=== PATIENT | female | born 1995 | race African-American/Black ===

== ENCOUNTER 2024-07-01 13:26 | Emergency (ER) | payer BC, SELFPAY ==
--- NOTE | ~2024-07-01 | XR_ITS ---
XR ankle RT min 3V Ordering provider: Zonia Smith PA-C History: . LATERAL PAIN AFTER rolled ankle . Comparison: None. FINDINGS: BONES: No acute fracture or dislocation. JOINT SPACES: Normal. SOFT TISSUES: Soft tissue swelling over the lateral malleolus. IMPRESSION: No acute osseous abnormality of the right ankle. Reviewed, dictated and finalized at location A.
--- OUTSIDE RECORDS SUMMARY | 2024-07-01 13:28 | XMS_ITS | Clinical Summary ---
Author Organization [facility] Address [address] [place] [address] Care Team Providers Care Aerodynamics Professor Name Role Phone Zuri Woodruff DIRECTOR ENTERPRISE DATA ARCHITECTURE-EXTRUSION OPERATOR Unavailable [phone] Source Comments [facility],non-owned Affiliates and Associated Physician Practices is amultiple site organization consisting of ambulatory clinics and hospital sitesin [place], [place], [place] and [place]. This disclosure is being madepursuant to the Care Everywhere program and may not contain all information available regarding this patient. Last updated 17.[employer] Allergies No known active allergies Medications * Be aware that medications may not be up to date on this document. Alwaysverify current medications with the patient. Vit-Fe Fumarate-FA ( VITAMIN) 28-0.8 MG tabletIndicatio ns: Take 1 tablet by mouth once daily Reasons: Active Active Problems Problem Noted Date Diagnosed Date Encounter for screening for cervical l ength 06/12/2018 H/O herpes simplex type 2 infection 06/06/2018 Overview (06/06/2018): HSV 2 IgG positive Choroid plexus cyst of fetus 06/06/2018 Rh negative, antepartum 06/04/2018 Maternal syphilis, antepartum 05/29/2018 Overview (06/06/2018): [03/21/18] T. Pallidum [immunoblot] indeterminate--low levels of antibodies detected antibodies RPR [05/25/18] T. 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 Supervision of high-risk of young prim igravida 05/29/2018 Overview (06/06/2018): [03/21/18]: T. Pallidum [immunoblot] indeterminate--low levels of antibodies detected antibodies ; RPR nonreactive Intentional acetaminophen overdose 09/26/2014 Assessment & Plan (09/26/2014 1:16 PM CDT): Assessment: 19 y.o with no psychiatric/behavioral disorder admitted for intentional overdose of medications containing acetaminophen. 4 hour level below treatment threshold. LFTs normal. Currently asymptomatic. Repeat acetaminophen levels remain below toxic level. Plan: I/O monitoring Vitals q 4 hours saline lock PIV urine hCG regular diet Suicide precaution Social service consult Central intake consult Resolved Problems Problem Noted Date Diagnosed Date Resolved Date Right knee pain 07/03/2014 05/29/2018 Immunizations Immunization Administration Dates Next Due Rhogam 08/08/2018 TDAP (7yrs+) 08/21/2018 Family History Medical History Relation Name Comments Asthma Brother Sickle Cell Anemia Father Diabetes Maternal Grandmother Sickle Cell Anemia Sister Sickle Cell Anemia half-sister Relation Name Status Comments Brother Father Maternal Grandmother Sister half-sister Social History Tobacco Use Types Packs/Day Years Used Date Smoking Tobacco: Passive Smo ke Exposure - Never Smoker Smokeless Tobacco: Never Alcohol Use Standard Drinks/Week Comments No 0 (1 standard drink = 0.6 oz pur e alcohol) Comments No Sex and Gender Information Value Date Recorded Sex Assigned at Not on file Legal Sex Female 4:14 PM CDT Gender Identity Not on file Sexual Orientation Not on file Last Filed Vital Signs Vital Sign Reading Time Taken Comments Blood Pressure 111/79 04/26/2023 5:01 AM CDT Pulse 95 04/26/2023 5:01 AM CDT Temperature 37.1 C (98.7 F) 04/26/2023 2:00 AM CDT Respiratory Rate 18 04/26/2023 5:01 AM CDT Oxygen Saturation 98% 04/26/2023 5:01 AM CDT Inhaled Oxygen Concentration - - Weight 84.8 kg (187 lb) 04/26/2023 1:39 AM CDT Height 167.6 cm (5' 6) 04/26/2023 1:39 AM CDT Body Mass Index 30.18 04/26/2023 1:39 AM CDT Plan of Treatment Health Maintenance Due Date Last Done Comments HIV SCREENING 01/19/2012 HEPATITIS C SCREENING 01/14/2015 HEPATITIS B VACCINE (1 of 3 - 19+ 3-dose series) 01/19/2016 PAP SMEAR 03/23/2021 03/23/2018 (Done Outside Per Report) COVID-19 VACCINE (2 - 2023-2 5 season) 2023 02/24/2021 DEPRESSION SCREENING 02/07/2024 INFLUENZA VACCINE (Season Ended) 2024 12/11/2013, 03/09/2011 DTAP/TDAP/TD VACCINES (2 - T d or Tdap) 08/21/2028 08/21/2018 ZOSTER VACCINE (1 of 2) 2047 HIB VACCINE Aged Out No longer eligi ble based on patient's age to complete this topic HPV VACCINE Aged Out No longer eligi ble based on patient's age to complete this topic MENINGOCOCCAL (Group B) VACCINE SHARED DECISION-MAKING Aged Out No longer eligible based on patient's age to complete this topic MENINGOCOCCAL GROUPS A/C/Y/W VACCINE Aged Out No longer eligible based on patient's age to complete this topic PNEUMOCOCCAL VACCINE Aged Out No long er eligible based on patient's age to complete this topic Insurance [facility] MEDICAID [facility] Advance Directives * Full Code (Latest Code Status on File) Date Activated Date Inactivated Comments 09/25/2014 11:46 PM 09/26/2014 7:21 PM * Full Code Date Activated Date Inactivated Comments 09/25/2014 11:38 PM 09/25/2014 11:46 PM Care Teams Aerodynamics Professor Relationship Specialty Start Date End Date Zuri Woodruff, DIRECTOR ENTERPRISE DATA ARCHITECTURE-EXTRUSION OPERATOR [address] [place], [place] [id number] Nurse Practitioner 10/15/14
--- OUTSIDE RECORDS SUMMARY | 2024-07-01 13:28 | XMS_ITS | CONTINUITY OF CARE DOCUMENT ---
Author Name angelina angelina Address Unknown Organization [facility] Address [address] [place] [address] Phone [phone] Care Team Providers Care Rn Coronary Care Unit Name Role Phone Bandar Gimenez MD Unavailable [phone] JHON DAWKINS MD Unavailable [phone] PROBLEMS Condition Status Date Provider Notes Cardiology examination active Bandar Gimenez MD Chest pain active Bandar Gimenez MD ENCOUNTERS Date Type Provider Location Encounter Diag nosis - In-person encounter Office Visit Bandar Gimenez MD [facility] Cardiology examinationChest pain VITAL SIGNS Date Observation Value Provider Body Mass Index (Ratio) 32.92 kg/m2 Ludwig Gimenez MD blood pressure, diastolic 87 mm[Hg] [place] nkLogirina blood pressure, systolic 17 mm[Hg] Silvia kLogirina oxygen saturation, oximetry 94 % Karey Shelton pulse rate 97 /min Karey freire blood pressure, cuff size regular Ti vincent Shelton blood pressure, diastolic 87 mm[Hg] Ti vincent Shelton blood pressure, systolic 117 mm[Hg] Bubba Shelton weight E&M 204 [lb_av] Karey freire height E&M 66 [in_i] Karey Saunder s HISTORY OF MEDICATION USE Medication Status Instructions Dates Provider Indications Com ments naproxen 500 mg tablet active Ti vincent Shelton cyclobenzaprine 10 mg tablet active Karey Shelton sertraline 25 mg tablet active T iftruong Shelton ondansetron HCl 4 mg tablet active Karey Shelton Mirena 21 mcg/24hr (up to 8 yrs) 52 mg intrauterine device active Karey Shelton INSURANCE PROVIDERS Payer name Policy type / Coverage type [place] red democrat ID [facility] [id number] [facility] [id number] ADVANCE DIRECTIVES Name Date DISCUSSED - NO DECISION MADE TREATMENT PLAN Date Name Performer Cardiology Bandar Gimenez MD Date Name OLGA RHEUMATOID FACTOR SED RATE BY MODIFIED ANKUSH LIPID PANEL Complete Echo HISTORY OF PROCEDURES Procedure Date Procedure Name Provider Procedure Notes S tatus EKG Bandar Gimenez MD completed
--- OUTSIDE RECORDS SUMMARY | 2024-07-01 13:28 | XMS_ITS | Referral Summary ---
Author Organization [facility] Address [address] [place] [address] Care Team Providers Care Dry Chain Operator Name Role Phone [facility] Primary Care Provider [phone] Allergies No known active allergies Medications aspirin 325 mg tablet Take 2 tablets (650 mg total) by mouth every 6 (six) hours for 7 days 56 tablet 06/04/2021 Active omeprazole (PriLOSEC) 20 mg capsule Take 1 capsule (20 mg total) by mouth daily for 7 days 7 capsule 06/04/2021 Active naproxen (NAPROSYN) 500 mg tablet Take 1 tablet (500 mg total) by mouth 2 (two) times a day with meals 30 tablet 12/28/2021 Active Active Problems Problem Noted Date Diagnosed Date Trichomoniasis of vagina 09/23/2018 Overview (09/23/2018): [facility] visit 09/23/18: --thin, frothy dc on spec exam, wet prep w/ motile trich. Rx for flagyl 500 mg po q 12 hrs x 7 days given. Rec partner tx & no intercourse x 2 wks. --GC/CT sent, UA neg --Reactive NST --Irreg ctx on toco, SVE /-3. Rec recheck in 1 hr, pt declined to stay. Strict PTL prec rev'd. --Declined APAP/heat --Advised to keep f/u on 09/25 uterine contractions 09/12/2018 Overview (09/12/2018): [facility] 8/7/19 R/O PTL: -No e/o PTL, UTI. SVE 04/30/-3 posterior x3 unchanged from prev exams -No e/o dehydration, hydrated with IVF 1l. Urine dip negative -irregular contractions, patient comfortable -Abdomen benign, likely round ligament/musculoskeletal discomforts of also. -Discussed normal physiologic discomforts of . Encouraged tylenol, heat, PG support belt. PTL precautions reviewed FWB: Reactive NST Herpes simplex virus type 2 (HSV-2) infection affecting in third trimester 09/12/2018 Marijuana abuse 09/12/2018 Biological false positive RPR test 09/12/2018 GBS (group B Streptococcus c arrier), +RV culture, currently 09/12/2018 Rh negative state in antepartum period 9 Abdominal pain affecting 06/11/2018 Overview (06/11/2018): [facility] VISIT 06/11/2018: abdominal pain - SSE: negative, closed/long/hi - abdominal soft, nontender - VSS - urine dip negative - likely muscular pains in , tylenol, heat and support belt dicussed - + Dopp tones - DW Dr. Amilcar PETERS Social History Tobacco Use Types Packs/Day Years Used Date Smoking Tobacco: Former Smokeless Tobacco: Never Alcohol Use Standard Drinks/Week Comments Not Currently 0 (1 standard drink = 0.6 oz pur e alcohol) Socially Personal Safety Answer Date Recorded Getting School Help Needed Not on file 04/01 Comments Unknown Sex and Gender Information Value Date Recorded Sex Assigned at Not on file Legal Sex Female 5:54 AM GLASSWARE VERIFIER Gender Identity Not on file Sexual Orientation Not on file Last Filed Vital Signs Vital Sign Reading Time Taken Comments Blood Pressure 122/73 12/28/2021 6:40 AM GLASSWARE VERIFIER Pulse 84 12/28/2021 6:40 AM GLASSWARE VERIFIER Temperature 36.7 C (98 F) 12/28/2021 4:23 AM GLASSWARE VERIFIER Respiratory Rate 18 12/28/2021 6:40 AM GLASSWARE VERIFIER Oxygen Saturation 97% 12/28/2021 6:40 AM GLASSWARE VERIFIER Inhaled Oxygen Concentration - - Weight 79.4 kg (175 lb) 12/28/2021 4:23 AM GLASSWARE VERIFIER Height 167.6 cm (5' 6) 12/28/2021 4:23 AM GLASSWARE VERIFIER Body Mass Index 28.25 12/28/2021 4:23 AM GLASSWARE VERIFIER Plan of Treatment Not on file Insurance [facility] [place] [address] [place] [address] [facility] Advance Directives For more information, please contact: [phone] * Full Code (Latest Code Status on File) Date Activated Date Inactivated Comments 09/03/2018 10:29 AM 09/03/2018 8:44 PM * Full Code Date Activated Date Inactivated Comments 08/28/2018 3:58 PM 08/31/2018 9:46 PM Care Teams Dry Chain Operator Relationship Specialty Start Date End Date [facility] [address] [address] PCP - General 09/23/18
--- OUTSIDE RECORDS SUMMARY | 2024-07-01 13:28 | XMS_ITS | Clinical Summary ---
Author Organization [facility] Address [address] [place] [address] Care Team Providers Care Adding Machine Mechanic Name Role Phone [facility] Primary Care Provider [phone] Allergies No known active allergies Medications aspirin [...] Date Trichomoniasis of vagina 09/23/2018 Overview (09/23/2018): [facility] visit 09/23/18: --thin, frothy dc on spec [...] on 09/25 uterine contractions 09/12/2018 Overview (09/12/2018): [facility] 8/7/19 R/O PTL: -No e/o PTL, UTI. [...] 9 Abdominal pain affecting 06/11/2018 Overview (06/11/2018): [facility] VISIT 06/11/2018: abdominal pain - SSE: negative, closed/long/hi - abdominal soft, nontender - VSS - urine dip negative - likely muscular pains in , tylenol, heat and support belt dicussed - + Dopp tones - DW Dr. Amilcar PETERS Surgical History Surgery Date Site/Laterality Comments HERNIA REPAIR TONSILLECTOMY US ABDOMEN COMPLETE W LIVER DOPPLER (C) 03/01/2018 R ight Medical History Medical History Date Comments Known health problems: none Urogenital trichomoniasis 05/19/2018 Overdose of acetaminophen, i ntentional self-harm, initial encounter ([facility]) 2014 MTHFR gene mutation Herpes HSV2 Social History Tobacco Use Types Packs/Day Years [...] on file Legal Sex Female 5:54 AM DINING HOST Gender Identity Not on file Sexual Orientation Not on file Obstetrics History Para Term AB IAB SAB Ectopic Multiple Livin g Live Births 1 0 0 0 Date Outcome GA Total Labor Labor/2nd/3rd Weight Sex Type Anes PTL Celina A1 A5 Name Clin Last Filed Vital Signs Vital Sign Reading Time Taken Comments Blood Pressure 122/73 12/28/2021 6:40 AM DINING HOST Pulse 84 12/28/2021 6:40 AM DINING HOST Temperature 36.7 C (98 F) 12/28/2021 4:23 AM DINING HOST Respiratory Rate 18 12/28/2021 6:40 AM DINING HOST Oxygen Saturation 97% 12/28/2021 6:40 AM DINING HOST Inhaled Oxygen Concentration - - Weight 79.4 kg (175 lb) 12/28/2021 4:23 AM DINING HOST Height 167.6 cm (5' 6) 12/28/2021 4:23 AM DINING HOST Body Mass Index 28.25 12/28/2021 4:23 AM DINING HOST Plan of Treatment Health Maintenance Due Date Last Done Comments Cervical Cancer Screening 1997 Depression Screening 1997 Hepatitis C Screening 1997 Varicella Vaccines (2 of 2 - 2-dose childhood series) 01/08/2014 12/11/2001 Regular Well Visit/Exam 18-64 2015 Covid-19 Vaccine ( season) 2023 02/24/2021 Influenza Vaccine (Season Ended) 2024 12/11/2013, 03/09/2011 DTaP/Tdap/Td Vaccine (8 - Td or Tdap) 08/21/2028 08/21/2018, 10/03/2008, 05/16/2001, Additional history exists Hepatitis B Screening Completed 1997 , 1997, 1997 HPV Vaccines Completed 10/05/2011, 02/2011, 03/09/2011, Additional history exists Pneumococcal vaccine <65 Aged Out No longer eligible based on patient's age to complete this topic Insurance [facility] [id number] BC[place] MEDICARE [place] [facility] Advance Directives For more information, please contact: [phone] * Full Code (Latest Code Status on File) Date Activated Date Inactivated Comments 09/03/2018 10:29 AM 09/03/2018 8:44 PM * Full Code Date Activated Date Inactivated Comments 08/28/2018 3:58 PM 08/31/2018 9:46 PM Care Teams Adding Machine Mechanic Relationship Specialty Start Date End Date [address] [address] PCP - General 09/23/18
--- OUTSIDE RECORDS SUMMARY | 2024-07-01 13:29 | XMS_ITS | Data Portability ---
Author Organization [facility] Address [address] [place] [address] Assessment Encounter Date Assessment Date Assessment LastModified by Organization Details LastModified Time 07/11/2023 07/11/2023 28yo F presents for Behavioral Health evaluation as a new patient. Last seen by never. Hx of depression, anxiety, trauma. Symptom Hx of loss of interest in former things, doesn't feel happy, unconscious triggerd anxiety to the point of dread/sweating. No drug use. Drugs THC smoke, rarely; Caffeine: 1 cup/d, occasional soda. C/c to establish care. Top Pt priority anxiety. IMPRESSION: Motivated, very insightful young woman. Wants to improve self. Willing to admit psych issues and seek treatment to do so. Anxiety and depression worsening, disabling at times. Suspect unknown past trauma in addtion to known stressful events in her life. PLAN: - Target s/s: anxiety (sometimes overheats), persistant depression, trauma - START: zoloft 25mg PO qd - Labs: Ordered baselien labs today - Referral to mental health counseling (gets off of work at 4pm M-F and works in [place], [place]) - Encouraged patience while med begins to work; great if she can find a therapist close to work - Educated on zoloft SE/ADRs. Educated that psychotherapy + meds provide best patient outcomes. And most of her work will need to be in therapy d/t trauma. - Consider: Asking more about relationship with mom; explore Maybe i am a problem for people - FU: 07/31 AUDIOCALL at 1200noon. How is zoloft working for anxiety/depressi on? [facility] [phone] [email or web address] 07/11/2023 17:27:42 08/01/2023 08/01/2023 28yo F presents for FU. Hx of depression, anxiety, trauma. Symptom Hx of loss of interest in former things, doesn't feel happy, unconscious triggered anxiety to the point of dread/sweating. Drugs THC smoke, rarely; Caffeine: 1 cup/d, occasional soda. C/c to establish care. Top Pt priority anxiety. IMPRESSION: Motivated, very insightful young woman. Wants to improve self. Willing to admit psych issues and seek treatment to do so. Anxiety and depression worsening, disabling at times. Suspect unknown past trauma in addtion to known stressful events in her life. PLAN: - Target s/s: anxiety (sometimes overheats), persistant depression, trauma - CONTINUE: zoloft 25mg PO qd - Labs: Reviewed...low Vit D...ordered supplement - Referral to mental health counseling (gets off of work at 4pm M-F and works in [place], [place]) IP - Encouraged patience while med begins to work; great if she can find a therapist close to work - Educated on zoloft SE/ADRs. Educated that psychotherapy + meds provide best patient outcomes. And most of her work will need to be in therapy d/t trauma. - Consider: Asking more about relationship with mom; explore Maybe i am a problem for people - FU: 2 weeks. AUDIOCALL at 1145. How is zoloft still working for anxiety/depressi on? [email or web address] Not available 08/01/2023 13:05:12 Plan of Treatment Reminders Order Date Submit Date Provider Last Modified By Organization Details Last Modified Time Details Appointments None recorded. Lab HbA1c (hemoglobi n A1c), blood 2023 024 QUINN [facility], [address] [facility], [address], [place], [address], 4 10:37:12 lipid panel, serum 2023 024 QUINN [facility], [address], [address], [place], [address], 4 10:37:06 HbA1c (hemoglobi n A1c), blood 2023 024 adahung [facility], [address], [address], [place], [address], 4 10:03:28 CMP, serum or plasma 2023 024 QUINN [facility], [address], [address], [place], [address], 4 10:37:07 vitamin B12 + folate, serum or blood 2023 024 QUINN [facility], [address], [address], [place], [address], 4 10:37:11 vitamin D, 25-hydroxy , total, serum 2023 024 QUINN [facility], [address], [address], [place], [address], 4 10:37:15 drug screen, 14 drugs (detectime d), urine 2023 024 QUINN [facility], [address], [address], [place], [address], 4 20:09:12 beta-HCG, qualitativ e, serum or plasma 2023 024 [facility], [address], [address], [place], [address], 4 13:59:21 CBC w/ diff 2023 024 QUINN [facility], [address], [address], [place], [address], 4 10:37:09 TSH + free T4, serum 2023 024 [facility], [address] [facility], [address], [place], [address], 4 10:37:05 iron + TIBC + ferritin, serum 2023 024 QUINN [facility], [address] [facility], [address], [place], [address], 4 10:37:13 test, urine 2023 024 shanda Arias (), [address] [place] [address], [address], 4 09:53:18 vaginal pathogens panel, MARINA+probe, vaginal fluid 2023 024 [facility], [address] [facility], [address], [place], [address], 4 06:21:08 test, urine 2023 024 [email or web address] In-Office Order, Internal Use Only DO Not Attach Compendium DO Not Attach Compendium, Do Not Delete/merge, [id number] 4 17:45:02 bacterial vaginosis panel, vaginal 2020 021 [facility] Patient Can Go To The Location Of Their Choice, 16:11:27 culture, vaginal/re ctal, streptococ cus group B 2020 021 [facility]), Patient Can Go To The Location Of Their Choice, 16:11:27 Referral mental health clinic referral 2023 024 [facility], [address] [place] [address], [place], [address], 4 17:48:11 behavioral health referral 2023 024 [facility]ir [facility], [address] [place], [address], 4 05:22:24 Procedures None recorded. Surgeries None recorded. Imaging None recorded. Medication Orders ergocalcif thomas (vitamin D2) 1,250 mcg (50,000 unit) capsule 2023 [facility][id number], [address] [place], [place], [id number], 4 12:56:35 sertraline 25 mg tablet 2023 [facility] [email or web address] [facility] #[id number], [address] [place], [place], [id number], 4 10:48:10 metronidaz ole 500 mg tablet 2023 0[facility][id number], [address], [place], [id number], 4 09:37:16 NuvaRing 0.12 mg-0.015 mg/24 hr vaginal 2023 024 [facility] #99099, [address] [place], [place], [id number], 4 17:45:05 multivitam in tablet 2020 021 [facility], [address] [place] [address], [place], [address], 4 13:58:08 Calcium with Vitamin D 600 mg-10 mcg (400 unit) tablet 2020 021 [facility], [address] [facility], [place], [address], 13:57:54 Annovera 0.15 mg-0.013 mg/24 hr vaginal ring 2020 021 [facility], [address] [place], [address], 13:57:43 Patient Targets Encounter Date Encounter Id Patient Goals Patient Target Last Modified By Organization Details Last Modified Time to be able to sort through things in my mind that I can't do on my own [email or web address] Not available 07/11/2023 17:24:27 to be able to sort through things in my mind that I can't do on my own [email or web address] Not available 08/01/2023 11:56:49 Patient Instructions Encounter Date Encounter Id Patient Instructions Last Modified By Organization Details Last Modified Time 04/18/2023 [id number] learning about mood disorders Not available 04/18/2023 14:43:44 06/27/2023 [id number] ring for control: care instructions [email or web address] Not available 06/27/2023 17:45:00 body mass index: care instructions [email or web address] Not available 06/27/2023 17:45:00 learning about healthy weight Not available 06/27/2023 17:45:00 07/11/2023 [id number] Pt. advised to call 911 or go to a local Emergency Department with any SI or HI, thoughts of self harm or any psychiatric emergency. Pt. is deemed safe and appropriate for continued out patient treatment. Pt. advised of the risk benefit ratio of medication, possible side effects and interactions of the meditations. Pt. wishes to continue with the treatment plan. Pt. advised to call or come in sooner than the scheduled appt. if there are any worsening of symptoms or problems with the medication. [email or web address] Not available 07/11/2023 17:27:53 08/01/2023 [id number] Pt. advised to call 911 or go to a local Emergency Department with any SI or HI, thoughts of self harm or any psychiatric emergency. Pt. is deemed safe and appropriate for continued out patient treatment. Pt. advised of the risk benefit ratio of medication, possible side effects and interactions of the meditations. Pt. wishes to continue with the treatment plan. Pt. advised to call or come in sooner than the scheduled appt. if there are any worsening of symptoms or problems with the medication. [email or web address] Not available 08/01/2023 11:56:50 Reason for Referral Behavioral Health Referral f or Mood disorder Referring Physician: Ping Smith, Internal Medicine, Encounter Date: 04/18/2023 Mental Health Clinic Referra l for Mixed anxiety and depressive disorder Referring Physician: Shivani Hackett, Family Medicine, Encounter Date: 07/11/2023 Results Created Date Observation Date Name Description Value Unit Range Abnormal Flag Note LastModifiedBy Organization Detail LastModifiedTime 03/05/19 21 03/10/2020 bacte rial vagin osis panel , vagin al atopobium vaginae Low - 0 score Not Available [facility] ([facility]) [address] [place], [address], 03/10/2020 16:11:27 03/05/1903/10/2020 bacte rial vagin osis panel , vagin al bvab 2 Modera te - 1 score Not Available [facility] ([facility]) [address] [place], [address], 03/10/2020 16:11:27 03/05/19 21 03/10/2020 bacte rial vagin osis panel , vagin al megasphaera 1 Low - 0 score Calcu late total score by vadim parks the 3 indiv idual bacte rial vagin osis (BV) marke r score s toget her. Total score is inter prete d as follo ws: Total score 0-1: Indic ates the absen ce of BV. Total score 2: Indet ermin ate for BV. Addit ional clini grace data shoul d be evalu ated to estab mukund a diagn osis. Total score 3-6: Indic ates the prese nce of BV. This test was nealel ralphed and its perfo rmanc e flory cteri stics deter mined by [facility]. It has not been clear ed or appro jeniffer by the Food and Drug Admin istra tion. The FDA has deter mined that such clear ance or appro wenceslao is not neclacey encinas. Not Available [facility] ([facility]) [address] [place], [address], 03/10/2020 16:11:27 03/05/19 21 03/10/2020 bacte rial vagin osis panel , vagin al yury albicans, MARINA Negati ve negati ve Not Available [facility] ([facility]) [address] [place], [address], 03/10/2020 16:11:27 03/05/19 21 03/10/2020 bacte rial vagin osis panel , vagin al yury glabrata, MARINA Negati ve negati ve Not Available [facility] ([facility]) [address] [place], [address], 03/10/2020 16:11:27 03/05/19 21 03/10/2020 bacte rial vagin osis panel , vagin al trich vag by MARINA Negati ve negati ve Not Available [facility] ([facility]) [address] [place], [address], 03/10/2020 16:11:27 03/05/19 21 03/10/2020 bacte rial vagin osis panel , vagin al chlamydia trachomatis, MARINA Negati ve negati ve Not Available [facility] ([facility]) [address] [place], [address], 03/10/2020 16:11:27 03/05/19 21 03/10/2020 bacte rial vagin osis panel , vagin al neisseria gonorrhoeae, MARINA Negati ve negati ve Not Available [facility] ([facility]) [address] [place], [address], 03/10/2020 16:11:27 03/05/19 21 03/10/2020 bacte rial vagin osis panel , vagin al hsv 1 MARINA Negati ve negati ve Not Available [facility] ([facility]) [address] [facility], [place], [address], 03/10/2020 16:11:27 03/05/19 21 03/10/2020 bacte rial vagin osis panel , vagin al hsv 2 MARINA Negati ve negati ve Not Available [facility] ([facility]) [address] [facility], [place], [address], 03/10/2020 16:11:27 03/05/19 21 03/07/2020 cultu re, vagin al/re ctal, strep tococ cus group B strep gp B MARINA Positi ve negati ve abnormal Cente rs for Disea se Contr ol and Preve ntion (CDC) and [place] can Congr ess of Obste trici ans and Gynec ologi sts (ACOG ) guide lines for preve ntion of perin atal group B strep tococ grace (GBS) disea se speci fy co-co llect ion of a vagin al and recta l swab speci men to maxim ize sensi tivit y of GBS detec tion. Per the CDC and ACOG, swabb ing both the lower vagin a and rectu m subst antia lly incre ases the yield of detec tion andrea red with sampl ing the vagin a alone . Penic illin G, ampic illin , or cefaz justin are indic ated for intra partu m proph ylaxi s of perin atal GBS colon izati on. Refle x susce ptibi lity testi ng shoul d be perfo rmed prior to use of clind amyci n only on GBS isola june from penic illin -syd rgic women who are consi dered a high risk for anaph ylaxi s. Treat ment with vanco mycin witho ut addit ional testi ng is warra nted if resis tance to dbd vladimir n is noted . Not Available [facility] ([facility]) [address] [facility], [place], [address], 03/10/2020 16:11:27 08/13/19 21 08/13/2020 HCG,B ETA SUBUN IT, QNT, SERUM HCG,beta subunit,qnt, serum <1 mIU/m L Femal e (Non- pregn ant) 0 - 5 (Post menop ausal ) 0 - 8 Femal e (Preg nant) Weeks of Gesta tion 3 6 - 71 4 10 - 750 5 746 - 0066 6 905 - 84291 7 8217 -8233 63 8 99915 -0958 71 9 90543 -9071 10 10 14079 -9028 77 12 56241 -9946 12 14 18489 - 83438 15 88497 - 16315 16 0588 - 37421 17 2579 - 05192 18 8922 - 90396 Portillo ECLIA metho dolog y Not Available [facility] ([facility]) [address] [facility], [place], [address], 08/13/2020 09:13:51 08/13/1908/13/2020 PROGE STERO NE progesterone 7.7 NG/mL Folli cular phase 0.1 - 0.9 Lutea l phase 1.8 - 23.9 Ovula tion phase 0.1 - 12.0 Pregn ant First trime ster 11.0 - 44.3 Secon d trime ster 25.4 - 83.3 Third trime ster 58.7 - 214.0 Postm enopa usal 0.0 - 0.1 Not Available [facility] ([facility]) [address] [facility], [place], [address], 08/13/2020 09:13:52 06/27/19 24 06/28/2023 NUSWA B VAGIN ITIS PLUS (VG+) atopobium vaginae LOW - 0 score Not Available [facility] ([facility]) [address] [place], [address], 06/29/2023 06:21:08 06/27/19 24 06/28/2023 NUSWA B VAGIN ITIS PLUS (VG+) bvab 2 MODERA TE - 1 score Not Available [facility] ([facility]) [address] [place], [address], 06/29/2023 06:21:08 06/27/19 24 06/28/2023 NUSWA B VAGIN ITIS PLUS (VG+) megasphaera 1 LOW - 0 score Calcu late total score by vadim g the 3 indiv idual bacte rial vagin osis (BV) marke r score s toget her. Total score is inter prete d as follo ws: Total score 0-1: Indic ates the absen ce of BV. Total score 2: Indet ermin ate for BV. Addit ional clini grace data shoul d be evalu ated to estab mukund a diagn osis. Total score 3-6: Indic ates the prese nce of BV. Not Available [facility] ([facility]) [address] [place], [address], 06/29/2023 06:21:08 06/27/19 24 06/28/2023 NUA B VAGIN ITIS PLUS (VG+) yury albicans, MARINA NEGATI VE negati ve Not Available [facility] ([facility]) [address] [place], [address], 06/29/2023 06:21:08 06/27/19 24 06/28/2023 NUA B VAGIN ITIS PLUS (VG+) yury glabrata, MARINA NEGATI VE negati ve Not Available [facility] ([facility]) [address] [place], [address], 06/29/2023 06:21:08 06/27/19 24 06/29/2023 NUA B VAGIN ITIS PLUS (VG+) trich vag by MARINA NEGATI VE negati ve Not Available [facility] ([facility]) [address] [place], [address], 06/29/2023 06:21:08 06/27/19 24 06/29/2023 NUSWA B VAGIN ITIS PLUS (VG+) chlamydia trachomatis, MARINA NEGATI VE negati ve Not Available [facility] ([facility]) [address] [facility], [place], [address], 06/29/2023 06:21:08 06/27/19 24 06/29/2023 NUA B VAGIN ITIS PLUS (VG+) neisseria gonorrhoeae, MARINA NEGATI VE negati ve Not Available [facility] ([facility]) [address] [facility], [place], [address], 06/29/2023 06:21:08 06/27/19 24 06/27/2023 pregn susannah test, urine HCG negati ve Not Available In-Office Order Internal Use Only DO Not Attach Compendium DO Not Attach Compendium, Do Not Delete/merge, [id number] 06/27/2023 17:40:49 07/11/19 24 07/12/2023 TSH+F REE T4 TSH 1.260 uIU/m L 0.450- 4.500 Not Available [facility] ([facility]) [address] [facility], [place], [address], 07/14/2023 10:37:05 07/11/19 24 07/12/2023 TSH+F REE T4 T4,free(dire ct) 1.06 NG/dL 0.82-1 .77 Not Available [facility] ([facility]) [address] [place], [address], 07/14/2023 10:37:05 07/11/19 24 07/12/2023 CHOL+ TRIG+ HDL+L DL-D cholesterol, total 153 mg/dL 100-19 9 Not Available [facility] ([facility]) [address] [place], [address], 07/14/2023 10:37:06 07/11/19 24 07/12/2023 CHOL+ TRIG+ HDL+L DL-D triglyceride s 59 mg/dL 0-149 Not Available [facility]) [address] [place], [address], 07/14/2023 10:37:06 07/11/19 24 07/12/2023 CHOL+ TRIG+ HDL+L DL-D HDL cholesterol 60 mg/dL >39 Not Available [facility]) [address] [place], [address], 07/14/2023 10:37:06 07/11/19 24 07/12/2023 CHOL+ TRIG+ HDL+L DL-D LDL chol. (direct) 85 mg/dL 0-99 Not Available [facility] ([facility]) [address] [place], [address], 07/14/2023 10:37:06 07/11/19 24 07/12/2023 CMP14 +EGFR glucose 84 mg/dL 70-99 Not Available [facility] ([facility]) [address] [place], [address], 07/14/2023 10:37:07 07/11/19 24 07/12/2023 CMP14 +EGFR BUN 12 mg/dL 6-20 Not Available [facility] ([facility]) [address] [place], [address], 07/14/2023 10:37:07 07/11/19 24 07/12/2023 CMP14 +EGFR creatinine 1.00 mg/dL 0.57-1 .00 Not Available [facility] ([facility]) [address] [place], [address], 07/14/2023 10:37:07 07/11/19 24 07/12/2023 CMP14 +EGFR eGFR 80 mL/mi n/1.7 3 >59 Not Available [facility] ([facility]) [address] [place], [address], 07/14/2023 10:37:07 07/11/19 24 07/12/2023 CMP14 +EGFR BUN/creatini ne ratio 12 9-23 Not Available [facility]) [address] [facility], [place], [address], 07/14/2023 10:37:07 07/11/19 24 07/12/2023 CMP14 +EGFR sodium 142 mmol/ L 134-14 4 Not Available [facility] ([facility]) [address] [facility] [place], [address], 07/14/2023 10:37:07 07/11/19 24 07/12/2023 CMP14 +EGFR potassium 4.4 mmol/ L 3.5-5. 2 Not Available [facility] ([facility]) [address] [facility], [place], [address], 07/14/2023 10:37:07 07/11/19 24 07/12/2023 CMP14 +EGFR chloride 107 mmol/ L 96-106 above high normal Not Available [facility] ([facility]) [address] [facility] [place], [address], 07/14/2023 10:37:07 07/11/19 24 07/12/2023 CMP14 +EGFR carbon dioxide, total 22 mmol/ L 20-29 Not Available [facility] ([facility]) [address] [place], [address], 07/14/2023 10:37:07 07/11/19 24 07/12/2023 CMP14 +EGFR calcium 9.5 mg/dL 8.7-10 .2 Not Available [facility] ([facility]) [address] [place], [address], 07/14/2023 10:37:07 07/11/19 24 07/12/2023 CMP14 +EGFR protein, total 7.1 g/dL 6.0-8. 5 Not Available [facility] ([facility]) [address] [facility], [place], [address], 07/14/2023 10:37:07 07/11/19 24 07/12/2023 CMP14 +EGFR albumin 4.5 g/dL 4.0-5. 0 Not Available [facility] ([facility]) [address] [facility], [place], [address], 07/14/2023 10:37:07 07/11/19 24 07/12/2023 CMP14 +EGFR globulin, total 2.6 g/dL 1.5-4. 5 Not Available [facility] ([facility]) [address] [facility] [place], [address], 07/14/2023 10:37:07 07/11/19 24 07/12/2023 CMP14 +EGFR A/G ratio 1.7 1.2-2. 2 Not Available [facility] ([facility]) [address] [facility], [place], [address], 07/14/2023 10:37:07 07/11/19 24 07/12/2023 CMP14 +EGFR bilirubin, total 0.5 mg/dL 0.0-1. 2 Not Available [facility] ([facility]) [address] [place], [address], 07/14/2023 10:37:07 07/11/19 24 07/12/2023 CMP14 +EGFR alkaline phosphatase 16 IU/L 44-121 below low normal Ritu ified by repea t enzo sis Not Available [facility] ([facility]) [address] [facility] [place], [address], 07/14/2023 10:37:07 07/11/19 24 07/12/2023 CMP14 +EGFR AST (SGOT) 21 IU/L 0-40 Not Available [facility] ([facility]) [address] [place], [address], 07/14/2023 10:37:07 07/11/19 24 07/12/2023 CMP14 +EGFR ALT (SGPT) 13 IU/L 0-32 Not Available [facility] ([facility]) [address] [facility], [place], [address], 07/14/2023 10:37:07 07/11/19 24 07/12/2023 CBC/D /PLT W/ REFLE X ANGELA TIN WBC 4.9 x10e3 /uL 3.4-10 .8 Not Available [facility] ([facility]) [address] [facility], [place], [address], 07/14/2023 10:37:09 07/11/19 24 07/12/2023 CBC/D /PLT W/ REFLE X ANGELA TIN RBC 4.77 x10e6 /uL 3.77-5 .28 Not Available [facility] ([facility]) [address] [facility], [place], [address], 07/14/2023 10:37:09 07/11/19 24 07/12/2023 CBC/D /PLT W/ REFLE X ANGELA TIN hemoglobin 12.9 g/dL 11.1-1 5.9 Not Available [facility] ([facility]) [address] [place], [address], 07/14/2023 10:37:09 07/11/19 24 07/12/2023 CBC/D /PLT W/ REFLE X ANGELA TIN hematocrit 40.8 % 34.0-4 6.6 Not Available [facility] ([facility]) [address] [place], [address], 07/14/2023 10:37:09 07/11/19 24 07/12/2023 CBC/D /PLT W/ REFLE X ANGELA TIN MCV 86 fL 79-97 Not Available [facility] ([facility]) [address] [place], [address], 07/14/2023 10:37:09 07/11/19 24 07/12/2023 CBC/D /PLT W/ REFLE X ANGELA TIN MCH 27.0 pg 26.6-3 3.0 Not Available [facility] ([facility]) [address] [facility], [place], [address], 07/14/2023 10:37:09 07/11/19 24 07/12/2023 CBC/D /PLT W/ REFLE X ANGELA TIN MCHC 31.6 g/dL 31.5-3 5.7 Not Available [facility] ([facility]) [address] [facility], [place], [address], 07/14/2023 10:37:09 07/11/19 24 07/12/2023 CBC/D /PLT W/ REFLE X ANGELA TIN RDW 13.2 % 11.7-1 5.4 Not Available [facility] ([facility]) [address] [facility], [place], [address], 07/14/2023 10:37:09 07/11/19 24 07/12/2023 CBC/D /PLT W/ REFLE X ANGELA TIN platelets 185 x10e3 /uL 150-45 0 Not Available [facility] ([facility]) [address] [facility], [place], [address], 07/14/2023 10:37:09 07/11/19 24 07/12/2023 CBC/D /PLT W/ REFLE X ANGELA TIN neutrophils 45 % notest ab. Not Available [facility] ([facility]) [address] [facility], [place], [address], 07/14/2023 10:37:09 07/11/19 24 07/12/2023 CBC/D /PLT W/ REFLE X ANGELA TIN lymphs 46 % notest ab. Not Available [facility] ([facility]) [address] [facility], [place], [address], 07/14/2023 10:37:09 07/11/19 24 07/12/2023 CBC/D /PLT W/ REFLE X ANGELA TIN monocytes 8 % notest ab. Not Available [facility] ([facility]) [address] [facility], [place], [address], 07/14/2023 10:37:09 07/11/19 24 07/12/2023 CBC/D /PLT W/ REFLE X ANGELA TIN eos 1 % notest ab. Not Available [facility] ([facility]) [address] [facility], [place], [address], 07/14/2023 10:37:09 07/11/19 24 07/12/2023 CBC/D /PLT W/ REFLE X ANGELA TIN basos 0 % notest ab. Not Available [facility] ([facility]) [address] [place], [address], 07/14/2023 10:37:09 07/11/19 24 07/12/2023 CBC/D /PLT W/ REFLE X ANGELA TIN neutrophils (absolute) 2.2 x10e3 /uL 1.4-7. 0 Not Available [facility] ([facility]) [address] [place], [address], 07/14/2023 10:37:09 07/11/19 24 07/12/2023 CBC/D /PLT W/ REFLE X ANGELA TIN lymphs (absolute) 2.2 x10e3 /uL 0.7-3. 1 Not Available [facility] ([facility]) [address] [place], [address], 07/14/2023 10:37:09 07/11/19 24 07/12/2023 CBC/D /PLT W/ REFLE X ANGELA TIN monocytes(ab solute) 0.4 x10e3 /uL 0.1-0. 9 Not Available [facility] ([facility]) [address] [place], [address], 07/14/2023 10:37:09 07/11/19 24 07/12/2023 CBC/D /PLT W/ REFLE X ANGELA TIN eos (absolute) 0.1 x10e3 /uL 0.0-0. 4 Not Available [facility] ([facility]) [address] [facility], [place], [address], 07/14/2023 10:37:09 07/11/19 24 07/12/2023 CBC/D /PLT W/ REFLE X ANGELA TIN baso (absolute) 0.0 x10e3 /uL 0.0-0. 2 Not Available [facility] ([facility]) [address], [place], [address], 07/14/2023 10:37:09 07/11/19 24 07/12/2023 CBC/D /PLT W/ REFLE X ANGELA TIN immature granulocytes 0 % notest ab. Not Available [facility] ([facility]) [address], [place], [address], 07/14/2023 10:37:09 07/11/19 24 07/12/2023 CBC/D /PLT W/ REFLE X ANGELA TIN immature grans (abs) 0.0 x10e3 /uL 0.0-0. 1 Not Available [facility] ([facility]) [address], [place], [address], 07/14/2023 10:37:09 07/11/19 24 07/14/2023 AMBIG UOUS TEST ORDER ambiguous test order Commen t Test not perfo rmed. Unabl e to perfo rm test due to curre nt unava ilabi lity of reage nts or disco ntinu ation of test. TEST [id number] 1 PREGN SUSANNAH SCREE N IS NOT AVAIL ABLE. Not Available [facility] ([facility]) [address], [place], [address], 07/14/2023 10:37:10 07/11/19 24 07/12/2023 VITAM IN B12 AND FOLAT E vitamin B12 398 pg/mL 232-12 45 Not Available [facility] ([facility]) [address], [place], [address], 07/14/2023 10:37:11 07/11/19 24 07/12/2023 VITAM IN B12 AND FOLAT E folate (folic acid), serum 10.8 NG/mL >3.0 A serum folat e ambreen ntrat ion of less than 3.1 ng/mL is consi dered to repre sent clini grace defic iency . Not Available [facility] ([facility]) [address], [place], [address], 07/14/2023 10:37:11 07/11/19 24 07/12/2023 HEMOG LOBIN A1C hemoglobin A1C 5.6 % 4.8-5. 6 Predi abete s: 5.7 - 6.4 Diabe june: >6.4 Glyce amilcar contr ol for adult s with diabe june: <7.0 Not Available [facility] ([facility]) [address] [place], [address], 07/14/2023 10:37:12 07/11/19 24 07/12/2023 FE+TI BC+FE R iron bind.cap.(TI BC) 333 ug/dL 250-45 0 Not Available [facility] ([facility]) [address] [place], [address], 07/14/2023 10:37:13 07/11/19 24 07/12/2023 FE+TI BC+FE R UIBC 263 ug/dL 131-42 5 Not Available [facility] ([facility]) [address] [place], [address], 07/14/2023 10:37:13 07/11/19 24 07/12/2023 FE+TI BC+FE R iron 70 ug/dL 27-159 Not Available [facility] ([facility]) [address], [place], [address], 07/14/2023 10:37:13 07/11/19 24 07/12/2023 FE+TI BC+FE R iron saturation 21 % 15-55 Not Available [facility] ([facility]) [address], [place], [address], 07/14/2023 10:37:13 07/11/19 24 07/12/2023 FE+TI BC+FE R ferritin 43 NG/mL 15-150 Not Available [facility] ([facility]) [address], [place], [address], 07/14/2023 10:37:13 07/11/19 24 07/12/2023 VITAM IN D, 25-HY DROXY vitamin D, 25-hydroxy 9.2 NG/mL 30.0-1 00.0 below low normal Vitam in D defic iency has been defin ed by the Insti tute of Medic ine and an Endoc rine Socie ty pract ice guide line as a level of serum 25-OH vitam in D less than 20 ng/mL (1,2) . The Endoc rine Socie ty went on to furth er defin e vitam in D insuf ficie ncy as a level betwe en 21 and 29 ng/mL (2). 1. IOM (Inst itute of Medic ine). 2010. Dieta ry refer ence malaika es for calci um and D. Miracle faye [place]: The Natio nal [employer] [facility] Press . 2. Pasha daniels MF, Jaky maloney [place], Sherry off-F errar i STONE, et al. Evalu ation , treat ment, and preve ntion of vitam in D defic iency : an Endoc rine Socie ty clini grace pract ice guide line. JCEM. 2010; 96(7) :1911 -30. Not Available [facility] ([facility]) [address], [place], [address], 07/14/2023 10:37:15 0607/19/2023 COMPL IANCE DRUG ENZO SIS, UR summary report (summary) FINAL ===== ===== ===== ===== ===== ===== ===== ===== ===== ===== ===== ===== ===== === TOXAS SURE COMP DRUG ENZO SIS,U R ===== ===== ===== ===== ===== ===== ===== ===== ===== ===== ===== ===== ===== === Test Resul t Flag Units Drug Prese nt Benzo ylecg onine 486 ng/mg creat Benzo ylecg onine is a metab olite of cocai ne; its prese nce indic ates use of this drug. Sourc e is most commo nly illic it, but cocai ne is prese nt in some topic al anest hetic solut ions. Carbo xy-TH C 125 ng/mg creat Carbo xy-TH C is a metab olite of tetra hydro canna binol (THC) . Sourc e of THC is most commo nly herba l marij uana or marij uana- based produ cts, but THC is also prese nt in a sched uled presc ripti on medic ation . Trace amoun ts of THC can be prese nt in hemp and canna bidio l (CBD) produ cts. This test is not inten ded to disti nguis h betwe en delta -9-te trahy droca nnabi nol, the predo minan t form of THC in most herba l or marij uana- based produ cts, and delta -8-te trahy droca nnabi nol. ===== ===== ===== ===== ===== ===== ===== ===== ===== ===== ===== ===== ===== === Test Resul t Flag Units Ref Range Creat inine 168 mg/dL >=20 ===== ===== ===== ===== ===== ===== ===== ===== ===== ===== ===== ===== ===== === Decla red Medic ation s: Medic ation list was not provi ded. ===== ===== ===== ===== ===== ===== ===== ===== ===== ===== ===== ===== ===== === For clini grace consu ltati on, pleas e call [phone]. ===== ===== ===== ===== ===== ===== ===== ===== ===== ===== ===== ===== ===== === Not Available [facility] ([facility]) [address], [place], [address], 07/19/2023 20:09:12 07/11/19 24 07/19/2023 COMPL IANCE DRUG ENZO SIS, UR pdf . Not Available [facility] ([facility]) [address] [place], [address], 07/19/2023 20:09:12 Result Notes None recorded. Problems Name Problem SNOMED Code Status Onset Date Resolution Date Notes Provider Name and Address Organization Details Recorded Time 86966395 Completed 201803/28/2018 JOSH Guerrero 9 10:24:43 Bacterial vaginosis 243803635 Active 2018 Not Available [facility] 1 04:31:13 Bacterial vaginosis 031808736 Completed 2018 JOSH Underwood 0 15:42:46 Trichomon al vaginitis 456068762 Completed 2018 Hayley Hi null, [place] - [facility] 0 15:42:45 Trichomon al vaginitis 040176692 Active 2018 Not Available [facility] 1 04:31:13 Group B Streptoco ccus carrier 69390857835 03 Completed 2018 [place], [place] - [facility] 0 15:42:45 Group B Streptoco ccus carrier 13686558419 03 Active 2018 Not Available [facility] 1 04:31:13 Genital herpes simplex 34952159 Completed 2018 [place], [place] - [facility] 0 15:42:46 Genital herpes simplex 00554842 Active 2018 Not Available [facility] 1 04:31:13 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 Completed 2018 [place], [place] - [facility] 0 15:42:45 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 09839232276 9102 Active 2018 Not Available [facility] 1 04:31:13 Syphilis 96960495 Active 2018 Not Available [facility] 1 04:31:13 Syphilis 09323673 Completed 2018 [place] - [facility] 0 15:42:46 RhD negative 469114129 Completed 2018 [place] [facility] 0 15:42:46 RhD negative 707782682 Active 2018 Not Available [facility] 1 04:31:13 Depressiv e disorder 09002269 Completed 2018 [place] [facility] 0 15:42:46 Mixed anxiety and depressiv e disorder 823374228 Active 2023 SYLVESTER GUZMÁN Attn: Accounting ,[address] [place], [address] , [facility] 4 17:28:40 Knee pain Completed 03/28/2018 Elvis car [facility] 9 10:24:39 Irregular periods 06739587 Completed 03/28/2018 Elvis car [facility] 9 10:24:48 Chlamydia l infection 525964572 Active Not Available [facility] 1 04:31:13 Contact dermatiti s 63709920 Active Not Available [facility] 1 04:31:13 Gonorrhea 03984388 Active Not Available [facility] 1 04:31:13 Problem Notes None recorded. Procedures Surgical History Date Name Laterality Status Provider Name and Address Organization Details Recorded Time 03/21/19 19 Date of Last Pap Smear completed Daily Husain MA [facility] 03/04/2020 10:49:24 08/27/19 16 Control Implant Removal completed Sybil Wynn PA-C Attn: Accounting,[address] [facility], [place], [address], [facility] 08/27/2015 09:57:50 07/24/19 15 Control Implant Replacement completed Elvis Chow [facility] 07/24/2014 01:41:45 Tonsillectomy completed Elvis Chow [facility] 04/18/2018 14:54:14 Hernia Repair completed Alma Rosa mcdaniel MA [facility] 06/18/2014 11:09:03 Imaging Results None recorded. Procedure Notes None recorded. Medical Equipment None Reported. Allergies No known drug allergies Medications Name Sig Start Date Stop Date Status Note LastModified by Organization Details LastModified Time multivitami n tablet Take 1 tablet every day by oral route. 04/17 completed Not Available Not Available Not Available nifedipine ER 30 mg tablet,exte nded release 24 hr Take 1 tablet every day by oral route. 04/28 completed Not Available Not Available Not Available amoxicillin 500 mg capsule active Not Available Not Available Not Available clindamycin HCl 300 mg capsule 08/26 completed Not Available Not Available Not Available cetirizine 10 mg tablet TAKE 1 TABLET BY MOUTH ONCE A DAY 04/17 completed Not Available Not Available Not Available azithromyci n 250 mg tablet TAKE 2 TABLETS (500 MG) BY ORAL ROUTE ONCE DAILY FOR 1 DAY THEN 1 TABLET (250 MG) BY ORAL ROUTE ONCE DAILY FOR 4 DAYS 03/21 completed Not Available Not Available Not Available aspirin 325 mg tablet TAKE 2 TABLETS BY MOUTH EVERY 6 HOURS FOR 7 DAYS 04/17 completed Not Available Not Available Not Available fluconazole 150 mg tablet 03/21 completed Not Available Not Available Not Available acetaminoph en 120 mg-codeine 12 mg/5 mL oral solution 03/21 completed Not Available Not Available Not Available Fiorinal 50 mg-325 mg-40 mg capsule Take 1 capsule every day by oral route as directed for 30 days. 11/24 completed Not Available Not Available Not Available metronidazo le 0.75 % (37.5 mg/5 gram) vaginal gel Insert 1 applicato rful every day by vaginal route at bedtime for 5 days. 09/04 completed Not Available Not Available Not Available ondansetron HCl 4 mg tablet Take 2 tablets 3 times a day by oral route as needed. 04/17 completed Not Available Not Available Not Available ceftriaxone 250 mg solution for injection Take 250 mg every day by injection route as directed for 1 day. 03/21 completed Not Available Not Available Not Available sertraline 100 mg tablet Take 1 tablet every day by oral route. 04/28 completed Not Available Not Available Not Available penicillin V potassium 500 mg tablet Take 1 tablet 3 times a day by oral route for 10 days. 04/17 completed Not Available Not Available Not Available metronidazo le 500 mg tablet TAKE 1 TABLET BY MOUTH TWICE DAILY FOR 7 DAYS 07/10 completed Not Available Not Available Not Available hydrocodone 10 mg-acetamin ophen 325 mg tablet 03/21 completed Not Available Not Available Not Available aspirin 81 mg tablet,evens yed release Take 1 tablet twice a day by oral route as directed. 04/17 completed Not Available Not Available Not Available Condoms-Pre m Lubricated Take 1 device by miscell. route. 04/28 completed Not Available Not Available Not Available acyclovir 800 mg tablet Take 1 tablet every day by oral route. 04/28 completed Not Available Not Available Not Available ketorolac 10 mg tablet 08/26 completed Not Available Not Available Not Available meloxicam 7.5 mg tablet 08/26 completed Not Available Not Available Not Available amoxicillin 875 mg tablet 03/21 completed Not Available Not Available Not Available famotidine 20 mg tablet 08/26 completed Not Available Not Available Not Available famciclovir 500 mg tablet 03/21 completed Not Available Not Available Not Available doxycycline monohydrate 100 mg capsule 03/21 completed Not Available Not Available Not Available diphenhydra mine 25 mg capsule Take 1 capsule every 4-6 hours by oral route as needed for 3 days. 08/26 completed Not Available Not Available Not Available cyanocobala min (vit B-12) 1,000 mcg/mL injection solution Inject 1 mL every month by subcutane ous route. 10/23 completed Not Available Not Available Not Available triamcinolo ne acetonide 0.1 % topical ointment APPLY A THIN LAYER TO THE AFFECTED AREA(S) BY TOPICAL ROUTE 2 TIMES PER DAY 10/23 completed Not Available Not Available Not Available nystatin 100,000 unit/gram topical cream APPLY TO THE AFFECTED AREA(S) BY TOPICAL ROUTE 2 TIMES PER DAY 04/28 completed Not Available Not Available Not Available progesteron e micronized 200 mg capsule Take 1 capsule twice a day by oral route. 04/17 completed Not Available Not Available Not Available Bicillin L-A 2,400,000 unit/4 mL intramuscul ar syringe Inject 4 mL by intramusc ular route. 08/21 completed Not Available Not Available Not Available sertraline 25 mg tablet TAKE 1 TABLET BY MOUTH EVERY DAY AT BEDTIME FOR ANXIETY active Not Available Not Available No t Available omeprazole 20 mg capsule,del ayed release TAKE 1 CAPSULE BY MOUTH ONCE DAILY FOR 7 DAYS 04/17 completed Not Available Not Available Not Available aspirin 81 mg chewable tablet Chew 1 tablet every day by oral route. 09/04 completed Not Available Not Available Not Available folic acid 1 mg tablet Take 2 tablets twice a day by oral route as directed. 04/17 completed Not Available Not Available Not Available ergocalcife rol (vitamin D2) 1,250 mcg (50,000 unit) capsule Take 1 capsule every week by oral route as directed for 90 days. 2023 active Not Available Not Available Not Avai lable ibuprofen 600 mg tablet TAKE 1 TABLET BY MOUTH EVERY 6 TO 8 HOURS NEEDED 04/17 completed Not Available Not Available Not Available methylpredn isolone 4 mg tablets in a dose pack FOLLOW PACKAGE DIRECTION S 04/17 completed Not Available Not Available Not Available ondansetron 4 mg disintegrat ing tablet Take 1 tablet every 8 hours by oral route as needed. 09/04 completed Not Available Not Available Not Available fluticasone propionate 50 mcg/actuati on nasal spray,suspe nsion 08/26 completed Not Available Not Available Not Available progesteron e micronized 100 mg capsule Take 1 capsule twice a day by oral route. 10/23 completed Not Available Not Available Not Available amoxicillin 875 mg-potassiu m clavulanate 125 mg tablet TAKE 1 TABLET BY MOUTH TWICE DAILY FOR 7 DAYS 04/17 completed Not Available Not Available Not Available azithromyci n 1 gram oral packet Take 1 g every day by oral route as directed for 1 day. 03/21 completed Not Available Not Available Not Available azithromyci n 500 mg tablet active Not Available Not Available Not Available RhoGAM Ultra-Filte red PLUS 1,500 unit (300 mcg) intramuscul ar syringe Inject 1 syringe by intramusc ular route. 10/23 completed Not Available Not Available Not Available Calcium with Vitamin D 600 mg-10 mcg (400 unit) tablet Take 1 tablet twice a day by oral route. 04/17 completed Not Available Not Available Not Available metoclopram trae 10 mg disintegrat ing tablet Take 1 tablet 4 times a day by oral route. 09/04 completed Not Available Not Available Not Available Plus (calcium carbonate) 27 mg iron-1 mg tablet 03/21 completed Not Available Not Available Not Available Nexplanon 68 mg subdermal implant Inject 1 implant by subcutane ous route. 03/21 completed Not Available Not Available Not Available Linzess 145 mcg capsule Take 1 capsule every day by oral route. 03/04 completed Not Available Not Available Not Available Gummy 400 mcg-35 mg-25 mg-5 mg chewable tablet Take 1 tablet by oral route. 04/28 completed Not Available Not Available Not Available Gummy 04/18 completed Not Available Not Available Not Available Xulane 150 mcg-35 mcg/24 hr transdermal patch APPLY ONE PATCH TOPICALLY ONCE A WEEK 03/21 completed Not Available Not Available Not Available Caltrate Gummy Bites 250 mg-10 mcg (400 unit) chewable tablet Take 1 tablet twice a day by oral route. 09/04 completed Not Available Not Available Not Available Annovera 0.15 mg-0.013 mg/24 hr vaginal ring INSERT RING VAGINALLY AND LEAVE IN FOR 21 DAYS THEN REMOVE FOR 7 DAYS IF DESIRES MENSES RINSE BETWEEN CYCLES MAY USE FOR 13 CYCLES 04/17 completed Not Available Not Available Not Available EluRyng 0.12 mg-0.015 mg/24 hr vaginal ring INSERT ONE INTO VAGINA, LEAVE IN FOR 3 WEEKS. TAKE OUT FOR 1 WEEK. active Not Available Not Available No t Available Vitals Date Recorded Body height Body mass index (BMI) Body weight Provider Name and Address Organization Details Last Updated DateTime 03/04/2020 167.64 cm 26.3 kg/m2 02979.56 g Daily Husain [place] - [facility] 03/04/2020 10:47:04 Date Recorded Body height Body mass index (BMI) Body weight Body temperature Oxygen saturation Oxygen saturation in Arterial blood by Pulse oximetry Heart rate Systolic And Diastolic Provider Name and Address Organization Details Last Updated DateTime 167.64 cm 29.9 kg/m2 44728.5 9 g 98 [degF] 99 % 99 % 62 /min 118/84 mm[Hg] Dacia Lane MA [place] - [facility] 4 14:16:19 Date Recorded Body height Body mass index (BMI) Body weight Heart rate Systolic And Diastolic Provider Name and Address Organization Details Last Updated DateTime 06/27/2023 167.64 cm 30.4 kg/m2 72808.08 g 68 /min 124/74 mm[Hg] Jackie Joseph MA [facility] 06/27/2023 17:28:49 Date Recorded Body height Body mass index (BMI) Body weight Oxygen saturation Oxygen saturation in Arterial blood by Pulse oximetry Heart rate Systolic And Diastolic Provider Name and Address Organization Details Last Updated DateTime 167.64 cm 30.7 kg/m2 83844.5 5 g 99 % 99 % 81 /min 110/62 mm[Hg] Margoth Garzon MA [facility] 09:36:55 Date Recorded Body height Provider Name an d Address Organization Details Last Updated DateTime 08/01/2023 167.64 cm Margoth Garzon MA [facility] 08/01/2023 12:35:42 Social History Question Answer Notes LastModified by Organization Details LastModified Time Tobacco Smoking Status Current Some Day Smoker occassionally Dacia Lane [place] null, [place] - [facility] 04/18/2023 14:15:14 Do You Have An Advance Directive? No Information not available 09/24/2015 If You Are , What Was Your Level Of Alcohol Consumption Prior To ? None [email or web address] Information not available 09/04/2018 How Many Years Have You Consumed Alcohol? 0 [email or web address] Information not available 09/04/2018 Animal Exposure? No [email or web address] Information not available 06/18/2014 Do You Wear A Helmet When Biking? No DOES NOT RIDE A BIKE Information not available 06/18/2014 Plan Yes Information not available 06/18/2018 Is Blood Transfusion Acceptable In An Emergency? No Information not available 09/24/2015 What Is Your Level Of Caffeine Consumption? Occasional [email or web address] Information not available 06/18/2014 Live With Cats/exposure To Cat Litter No [email or web address] Information not available 06/18/2018 How Much Tobacco Do You Chew? None Information not available 09/24/2015 What Type Of Regional Vice President Life Sales Do You Use? None Information not available 06/18/2014 What Type Of Diet Are You Following? REGULAR [email or web address] Information not available 06/18/2014 Which Illicit Or Recreational Drugs Have You Used? Marijuana Information not available 03/04/2020 Education 12 Information not available 09/24/2015 Have There Been Any Changes To Your Family Or Social Situation? No [email or web address] Information not available 06/18/2014 What Is The Fluoride Status Of Your Home? Unknown [email or web address] Information not available 06/18/2014 Frequent Air Travel No [email or web address] Information not available 06/18/2018 Are There Any Guns Present In Your Home? No Information not available 09/08/2015 What Is Your Home Situation? Mother Information not available 06/18/2014 Illicit Drugs Pre- Marijuana Information not available 03/04/2020 How Many Years Have You Used Illicit Or Recreational Drugs? 0 [email or web address] Information not available 09/04/2018 Do You Use Insect Repellent Routinely? Yes [email or web address] Information not available 06/18/2014 Live Alone Or With Others? With Others Going Into [employer] 09/27/2015 Information not available 09/24/2015 Car Seat Type Or Seat Belt? Seat Belt [email or web address] Information not available 06/18/2014 Parent Involvement? Both Parents Involved Information not available 06/18/2014 Riding In Car Front Seat? Yes [email or web address] Information not available 06/18/2014 Marital Status [email or web address] n not available 07/23/2014 What Was The Date Of Your Most Recent Tobacco Screening? 08/01/2023 Information not available 08/01/2023 How Many Children Do You Have? 1 Information not available 03/04/2020 Are There Any Occupational Health Risks Where You Work? Not Working [email or web address] Information not available 06/18/2018 What Is Your Parents' Marital Status? Unmarried [email or web address] Information not available 06/18/2014 Performs Monthly Self-breast Exam? Yes Information not available 09/24/2015 Pool Exposure No [email or web address] Information not available 06/18/2014 Do You Use Protection During Sex? Usually Information not available 09/24/2015 What Is Your Relationship Status? Single Information not available 09/24/2015 What Is The Name Of Your School? [facility] [facility] [employer] [email or web address] Information not available 06/18/2014 Seat Belts Used Routinely Yes Information not available 09/24/2015 Are You Sexually Active? Yes Information not available 07/23/2014 Do You Have Any Siblings? 4 [email or web address] Information not available 06/18/2014 Do You Have Smoke And Carbon Monoxide Detectors In Your Home? Yes [email or web address] Information not available 06/18/2014 Are You Passively Exposed To Smoke? Yes Discussed Health Risks Of Second Hand Smoke Information not available 06/18/2014 How Much Tobacco Do You Smoke? No Information not available 07/23/2014 What Types Of Sporting Activities Do You Participate In? TRACK [email or web address] Information not available 06/18/2014 General Stress Level Low Information not available 09/24/2015 Do You Use Sunscreen Routinely? No Information not available 06/18/2014 Supplements Pnv [email or web address] Information not available 06/18/2018 Has Tobacco Cessation Counseling Been Provided? Yes Information not available 04/18/2023 On What Date Was Tobacco Cessation Counseling Provided? 08/01/2023 Information not available 08/01/2023 Year In School 12 Informatio n not available 06/05/2015 Sex: Unknown Functional Status Question Answer Note LastModified by Organizat ion Details LastModified Time Do you or have you ever used any other forms of tobacco or nicotine? No Information not available 04/18/2023 What is your level of alcohol consumption? None Information not available 07/23/2014 Do you or have you ever used smokeless tobacco? Never used smokeless tobacco [email or web address] Information not available 09/25/2018 What is your occupation? Other Information not available 07/23/2014 Do you or have you ever used e-cigarettes or vape? Never used electronic cigarettes [email or web address] Information not available 09/25/2018 What is your exercise level? Moderate [email or web address] Information not available 06/18/2014 Mental Status Question Answer Note LastModified by Organization D etails LastModified Time Are you or have you been involved with bullying? No [email or web address] Information not available 06/18/2014 Family History Relationship Description Onset Age of this Age Resolved Age Notes LastModified by Organization Details LastModified Time Paternal Aunt Lupus erythematosu s Lupus Not available 09/23 14:54:45 Paternal Aunt Amyotrophic lateral sclerosis ALS Not available 09/23 14:54:45 Paternal Grandmother Rheumatoid arthritis Not available 09/23 14:54:45 Notes:Mother= well adult. Medical History Condition Response Other N High Blood Pressure N Blood Diseases N Breast Cancer N Lung Disease N Depression N Blood Clots N Developmental or Behavioral Disorders N Breast Problem N Premature N Anesthesia Complications N Headaches/Migraines N Anxiety Disorder N Muscle, Joint, or Bone Problems N Vision or Eye Problems N Head Injury/Concussion N Polyps N Infertility N Acid Reflux (GERD) N Cancer N ADHD N Endometriosis N Bladder or Kidney Problems N High Cholesterol N Liver Disease N Headaches N Ear or Hearing Problems N Thyroid Problems N Kidney or Bladder Problems N GI Problems N Acne N Skin Problems N Eating Disorder N Anemia N Constipation N Ovarian Cancer N Diabetes N Bedwetting N Blood Transfusions N Seizures/Epilepsy N Heart Problems/Murmur N Abuse/Domestic Violence N Asthma N Allergies N Hepatitis N Heart Disease N Pre-Eclampsia N Osteoporosis N Chicken Pox N Autism Spectrum Disorder (ASD) N Gynecological History Statement/Question Response Flow Moderate Date of LMP 07/31/2023 On BCP's at Conception? N STIs/STDs Yes HPV Vaccine Y Duration of Flow (days) 4 Age at Menarche 14 Current Control Method None Age at First Child 2 Frequency of Cycle (Q days) 30 Sexually Active? Y Menses Monthly Y Date of Last Pap Smear 03/21/2018 Sexual Problems? N LMP Definite Desired Control Method Vaginal Rin g Obstetrics History GPAL:G 1 P 0 1 0 1 Type Value Multiple Births 0 Full Term 0 Induced 0 Spontaneous 0 Premature 1 Living 1 Ectopics 0 Total 1 Immunizations Vaccine Type Date Status Note Provider Nam e and Address Organization Details Recorded Time meningococcal B, OMV 6 completed Not Available [facility] 02/23/2019 02:32:05 Tdap 9 completed Not Available [facility] 02/23/2019 02:37:39 Hep B, adolescent or pediatric 8 completed Not Available [facility] 08/18/2020 04:31:14 IPV 8 completed Not Available [facility] 08/18/2020 04:31:14 Hib, unspecified formulation 9 completed Not Available [facility] 08/18/2020 04:31:14 MMR 2 completed Not Available [facility] 08/18/2020 04:31:14 DTaP, unspecified formulation 9 completed Not Available [facility] 08/18/2020 04:31:14 IPV 9 completed Not Available [facility] 08/18/2020 04:31:14 DTaP, unspecified formulation 8 completed Not Available [facility] 08/18/2020 04:31:14 meningococcal MCV4, unspecified formulation 9 completed Not Available [facility] 08/18/2020 04:31:14 DTaP-Hib 8 completed Not Available [facility] 08/18/2020 04:31:14 IPV 2 completed Not Available [facility] 08/18/2020 04:31:14 MMR 9 completed Not Available [facility] 08/18/2020 04:31:14 HPV, unspecified formulation 9 completed Not Available [facility] 08/18/2020 04:31:14 varicella 2 completed Not Available [facility] 08/18/2020 04:31:14 Hib, unspecified formulation 9 completed Not Available [facility] 08/18/2020 04:31:14 DTaP, unspecified formulation 9 completed Not Available [facility] 08/18/2020 04:31:14 Hep A, ped/adol, 2 dose 2 completed Not Available [facility] 08/18/2020 04:31:14 Hep B, adolescent or pediatric 8 completed Not Available [facility] 08/18/2020 04:31:14 HPV, unspecified formulation 2 completed Not Available [facility] 08/18/2020 04:31:14 HPV, unspecified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
[2024-07-01 13:52] VITALS: BP 120/69; PULSE 79; RESP 15; TEMP 36.6; O2SAT 100
--- NOTE | 2024-07-01 14:16 | ED_ITS ---
HPI - Extremity Injury (Lower) General Chief Complaint: Extremity Injury, Lower Stated Complaint: ankle injury Time Seen by Provider: 07/01/24 15:11 Focused HPI: 29-year-old female presents emergency department for right ankle pain after an injury that occurred yesterday. Patient states she was playing kickball in her team accidentally ran into her and caused her to roll her ankle. She is reporting pain and swelling to the lateral malleolus. Has been icing it, wrapping it with Lit wrap and elevating. Denies other injuries acquired. GENERAL: Well-appearing, well-nourished, and in no acute distress. HEAD: Normocephalic, atraumatic. CHEST: Clear to auscultation. ?No respiratory distress. EXT: Tenderness and edema to the lower right lateral malleolus with no skin compromise. No tenderness to remainder of extremity. Negative Villafana's test. DP pulse 2 +. Sensation intact. HEART: Regular rate and rhythm.? NEURO: ?Alert and oriented x3. Patient screened in triage and initial orders placed.? ?Additional care and disposition to be based upon?diagnostic testing and treatment. Related Data Home Medications ?Medication ?Instructions ?Recorded ?Confirmed ?Last Taken ?Type levonorgestrel (Mirena) 1 device intrauterine ONCE 01/05/24 03/01/24 Unknown H istory Allergies Allergy/AdvReac Type Severity Reaction Status Date / Time No Known Allergies Allergy Verified 07/01/24 13:27 Review of Systems Review of Systems: All systems reviewed & are unremarkable except as noted in HPI and below PMFSH Past Medical History Medical History Encounter for initial insertion of intrauterine contraceptive device Surgical History Surgical History H/O gynecological procedure Mirena IUD insertion History of tonsillectomy H/O hernia repair Social History Social History Smoking status: Never smoker Alcohol intake: current Substance use: current Substance use type: marijuana Do You Feel Safe in your Home?: Yes Lack of Transportation: No Lack of Food: Never True Current Housing: I Have Housing Concerned About Future Housing: No Difficulty Paying Gas/Electric Bills: No Difficulty Paying for Meds: No Currently Unemployed: No Education: Decline to Answer Difficulty w/ Childcare or Family Care: No Living arrangements: with family Occupation/Education: occupation Gender identity (if verbalized by the patient): Female Sexual Orientation (if Verbalized by the Patient): no prefere Exam Narrative: GENERAL: Well-appearing, well-nourished, and in no acute distress. HEAD: Normocephalic, atraumatic. EYES: EOMI. ENT: Nares clear, no rhinorrhea or epistaxis. Mucous membranes moist. NECK: Supple. CHEST: Clear to auscultation. No respiratory distress. HEART: Regular rate and rhythm. No murmur heard. Normal peripheral pulses. EXTREMITIES: RLE: Tenderness and edema to the right lateral malleolus with no overlying skin compromise, abrasions or lacerations. No tenderness remainder of extremity. Negative high squeeze. Negative Villafana's test. DP pulse 2 +. Sensation intact throughout. SKIN: Warm, dry, no rash. NEURO: No focal deficits. Alert and oriented x3 Course Vital Signs Vital signs: Vital Signs Temperature 97.9 F 07/01/24 13:52 Pulse Rate 79 07/01/24 13:52 Respiratory Rate 15 07/01/24 13:52 Blood Pressure 120/69 07/01/24 13:52 Pulse Oximetry 100 07/01/24 13:52 Temperature 97.9 F 07/01/24 13:52 Pulse Rate 79 07/01/24 13:52 Respiratory Rate 16 07/01/24 15:19 Blood Pressure 120/69 07/01/24 13:52 Pulse Oximetry 100 07/01/24 13:52 MDM - Extremity Injury (Lower) MDM Narrative Medical decision making narrative: 29-year-old female presents to the emergency department for right ankle pain and swelling after rolling her ankle yesterday playing kickball. See HPI for further history. Vitals are stable. Exam significant for the above. Patient is neurovascularly intact. X-ray of ankle shows no acute osseous abnormalities. Patient updated on results. Ankle wrapped in an Lit wrap and patient provided script for ibuprofen. Advised RICE follow-up with PCP. Discussed strict ED return precautions. She is agreeable with the plan verbalized understanding. Discharged in stable condition. Discharge Plan Discharge Clinical Impression: Ankle sprain and strain Patient Disposition: Home Condition: Stable Instructions: Antibiotic Form, Ankle Sprain (DC) Additional Instructions: You were evaluated in the emergency department for ankle pain. Your x-ray showed no broken bones. Your presentation is consistent with a sprain. Please rest, ice, elevate and keep her ankle compressed. Follow-up with your PCP. Return to the emergency department if you develop any new or worsening symptoms. Patient Language: Ghanaian Prescriptions: New ibuprofen 800 mg tablet 800 mg PO TID PRN (Reason: pain) Qty: 20 0RF No Action Mirena 21 mcg/24hr (up to 8 yrs) 52 mg intrauterine device 1 device intrauterine ONCE Rx Instructions: as a single dose fluconazole 150 mg tablet 150 mg PO Q72H Qty: 2 0RF Rx Instructions: as a single dose ondansetron HCl 4 mg tablet 4 mg PO Q6H PRN (Reason: nausea and vomiting) Qty: 30 1RF metronidazole 500 mg tablet 500 mg PO Q12H Qty: 14 0RF Follow-up/Referrals: Daisha Baugh MD [Physician] - PHYSICIAN NOT ON STAFF,NONSTAFF [Non-Staff] - Stand Alone Forms: Work/School Release IP
--- OUTSIDE RECORDS SUMMARY | 2024-07-01 14:50 | XMS_ITS | Referral Summary ---
Author Organization [facility] Address [address] [place] [address] Care Team Providers Care Reproduction Order Processor Name Role Phone [facility] Primary Care Provider Allergies No known active allergies Medications aspirin [...] Date Trichomoniasis of vagina 09/23/2018 Overview (09/23/2018): [facility] visit 09/23/18: --thin, frothy dc on spec [...] on 09/25 uterine contractions 09/12/2018 Overview (09/12/2018): [facility] 8/7/19 R/O PTL: -No e/o PTL, UTI. [...] 9 Abdominal pain affecting 06/11/2018 Overview (06/11/2018): [facility] VISIT 06/11/2018: abdominal pain - SSE: negative, [...] on file Legal Sex Female 5:54 AM CLINICAL STATISTICS MANAGER Gender Identity Not on file Sexual Orientation Not on file Last Filed Vital Signs Vital Sign Reading Time Taken Comments Blood Pressure 122/73 12/28/2021 6:40 AM CLINICAL STATISTICS MANAGER Pulse 84 12/28/2021 6:40 AM CLINICAL STATISTICS MANAGER Temperature 36.7 C (98 F) 12/28/2021 4:23 AM CLINICAL STATISTICS MANAGER Respiratory Rate 18 12/28/2021 6:40 AM CLINICAL STATISTICS MANAGER Oxygen Saturation 97% 12/28/2021 6:40 AM CLINICAL STATISTICS MANAGER Inhaled Oxygen Concentration - - Weight 79.4 kg (175 lb) 12/28/2021 4:23 AM CLINICAL STATISTICS MANAGER Height 167.6 cm (5' 6) 12/28/2021 4:23 AM CLINICAL STATISTICS MANAGER Body Mass Index 28.25 12/28/2021 4:23 AM CLINICAL STATISTICS MANAGER Plan of Treatment Not on file Insurance [facility] [place] [address] [place] [address] [facility] Member Subscriber Plan / Payer (Ef fective 2019-Present) Name:Kassie Lane Relation to Subscriber:Self Name:Kassie Lane Payer ID:[id number] ([facility]) Type:MEDICAID RISK OTHER Address: [address] [place] [address] [facility] PLAN Advance Directives For more information, please contact: [phone] * Full Code (Latest Code Status on File) Date Activated Date Inactivated Comments 09/03/2018 10:29 AM 09/03/2018 8:44 PM * Full Code Date Activated Date Inactivated Comments 08/28/2018 3:58 PM 08/31/2018 9:46 PM Care Teams Reproduction Order Processor Relationship Specialty Start Date End Date [facility] [address] [address] PCP - General 09/23/18
--- OUTSIDE RECORDS SUMMARY | 2024-07-01 14:50 | XMS_ITS | Clinical Summary ---
Author Organization [facility] Address [address] [place] [address] Care Team Providers Care Design Teacher Name Role Phone Zuri Woodruff POWDERED SUGAR SUPERVISOR-PRECISION JIG GRINDER Unavailable [phone] Source Comments [facility],non-owned Affiliates and Associated Physician Practices is amultiple site organization consisting of ambulatory clinics and hospital sitesin [place], [place], [place] and [place]. This disclosure is being madepursuant to the Care Everywhere program and may not contain all information available regarding this patient. Last updated 17.[employer] Allergies No known active allergies Medications * [...] growth every 4 weeks Heterozygous MTHFR mutation [id number] 05/29/2018 Overview (06/06/2018): No significant associated problem. [...] patient's age to complete this topic Insurance [facility] MEDICAID [facility] Advance Directives * Full Code (Latest Code Status on File) Date Activated Date Inactivated Comments 09/25/2014 11:46 PM 09/26/2014 7:21 PM * Full Code Date Activated Date Inactivated Comments 09/25/2014 11:38 PM 09/25/2014 11:46 PM Care Teams Design Teacher Relationship Specialty Start Date End Date Zuri Woodruff, POWDERED SUGAR SUPERVISOR-PRECISION JIG GRINDER [address] [place], [place] [id number] Nurse Practitioner 10/15/14
--- OUTSIDE RECORDS SUMMARY | 2024-07-01 14:50 | XMS_ITS | CONTINUITY OF CARE DOCUMENT ---
Author Name angelina angelina Address Unknown Organization [facility] Address [address] [place] [address] Phone [phone] Care Team Providers Care Marshmallow Machine Operator Name Role Phone Bandar Gimenez MD Unavailable [phone] JHON DAWKINS MD Unavailable [phone] PROBLEMS Condition Status Date Provider Notes Cardiology examination active Bandar Gimenez MD Chest pain active Bandar Gimenez MD ENCOUNTERS Date Type Provider Location Encounter Diag nosis - In-person encounter Office Visit Bandar Gimenez MD [place] [facility] Cardiology examinationChest pain VITAL SIGNS Date Observation Value Provider Body Mass Index (Ratio) 32.92 kg/m2 Ludwig Gimenez MD blood pressure, diastolic 87 mm[Hg] [place] nkLogirina blood pressure, systolic 17 mm[Hg] Silvia kLogirina oxygen saturation, oximetry 94 % Karey Shelton pulse rate 97 /min Karey freire blood pressure, cuff size regular Ti vincent Shelton blood pressure, diastolic 87 mm[Hg] Ti vincnet Shelton blood pressure, systolic 117 mm[Hg] Bubba [...] Payer name Policy type / Coverage type [place] [employer] party ID [facility] [id number] [facility] [id number] ADVANCE DIRECTIVES Name Date DISCUSSED - NO DECISION MADE TREATMENT PLAN Date Name Performer Cardiology Bandar Gimenez MD Date Name OLGA RHEUMATOID FACTOR SED RATE BY MODIFIED [place] LIPID PANEL Complete Echo HISTORY OF PROCEDURES Procedure Date Procedure Name Provider Procedure Notes S tatus EKG Bandar Gimenez MD completed
--- OUTSIDE RECORDS SUMMARY | 2024-07-01 14:50 | XMS_ITS | Clinical Summary ---
Author Organization [facility] Address [address] [place] [address] Care Team Providers Care Dental Manager Name Role Phone [facility] Primary Care Provider Allergies No known [...] Date Trichomoniasis of vagina 09/23/2018 Overview (09/23/2018): [facility] visit 09/23/18: --thin, frothy dc on spec [...] on 09/25 uterine contractions 09/12/2018 Overview (09/12/2018): [facility] 8/7/19 R/O PTL: -No e/o PTL, UTI. [...] 9 Abdominal pain affecting 06/11/2018 Overview (06/11/2018): [facility] VISIT 06/11/2018: abdominal pain - SSE: negative, [...] of acetaminophen, i ntentional self-harm, initial encounter ([facility]) 2014 MTHFR gene mutation Herpes [...] on file Legal Sex Female 5:54 AM QUALITY CONTROL SYSTEMS MANAGER Gender Identity Not on file Sexual Orientation Not on file Obstetrics History Para Term AB IAB SAB Ectopic Multiple Livin g Live Births 1 0 0 0 Date Outcome GA Total Labor Labor/2nd/3rd Weight Sex Type Anes PTL Celina A1 A5 Name Clin Last Filed Vital Signs Vital Sign Reading Time Taken Comments Blood Pressure 122/73 12/28/2021 6:40 AM QUALITY CONTROL SYSTEMS MANAGER Pulse 84 12/28/2021 6:40 AM QUALITY CONTROL SYSTEMS MANAGER Temperature 36.7 C (98 F) 12/28/2021 4:23 AM QUALITY CONTROL SYSTEMS MANAGER Respiratory Rate 18 12/28/2021 6:40 AM QUALITY CONTROL SYSTEMS MANAGER Oxygen Saturation 97% 12/28/2021 6:40 AM QUALITY CONTROL SYSTEMS MANAGER Inhaled Oxygen Concentration - - Weight 79.4 kg (175 lb) 12/28/2021 4:23 AM QUALITY CONTROL SYSTEMS MANAGER Height 167.6 cm (5' 6) 12/28/2021 4:23 AM QUALITY CONTROL SYSTEMS MANAGER Body Mass Index 28.25 12/28/2021 4:23 AM QUALITY CONTROL SYSTEMS MANAGER Plan of Treatment Health Maintenance Due Date [...] patient's age to complete this topic Insurance [facility] IDPA [facility] PLAN [facility] [place] [address] [place] [facility] Advance Directives For more information, please contact: [phone] * Full Code (Latest Code Status on File) Date Activated Date Inactivated Comments 09/03/2018 10:29 AM 09/03/2018 8:44 PM * Full Code Date Activated Date Inactivated Comments 08/28/2018 3:58 PM 08/31/2018 9:46 PM Care Teams Dental Manager Relationship Specialty Start Date End Date [address] [address] PCP - General 09/23/18
[2024-07-01 15:19] VITALS: RESP 16
== END 2024-07-01 15:21 | disposition home or self-care (01) ==
PROVIDERS: Emergency Provider Physician Assistant
DX: S93.401A Sprain of unspecified ligament of right ankle, initial encounter (principal); S96.911A Strain of unspecified muscle and tendon at ankle and foot level, right foot, initial encounter; Z97.5 Presence of (intrauterine) contraceptive device; X50.9XXA Other and unspecified overexertion or strenuous movements or postures, initial encounter; Y93.6A Activity, physical games generally associated with school recess, summer camp and children
CPT/HCPCS: 73610; 99283